=== PATIENT | male | born 1955 | race Caucasian/White ===

== ENCOUNTER 2017-01-13 20:21 | Emergency (ER) | payer OTHER ==
--- NOTE | 2017-01-13 20:42 | EDPHY ---
HPI/HX/ROS/PE/MDM Narrative: CHIEF COMPLAINT: Left thumb laceration. HPI: The patient is a 61-year-old male who presents after lacerating his left thumb on a kitchen knife 5 hours ago. He initially bandaged the thumb but the bleeding would not stop and the pain continued to worsen so he presented to the ED. He denies dizziness, numbness, weakness, injuries to other fingers, or other complaints. He still has full range of motion in his thumb. REVIEW OF SYSTEMS: Gen: No fever, no chills. PMH: Hyperlipidemia. SOCIAL HISTORY: , [facility]. PHYSICAL EXAM: General: Patient is alert, in no acute distress. Left hand: 1.5cm circular laceration to ulnar aspect of thumb. Nail is not involved. Neuro: Oriented x3. Normal motor function. Normal sensory function. ED Course: Procedure: Laceration repair. Verbal consent was obtained from the patient. The 1.5cm circular laceration on the left thumb was anesthetized. The wound was cleaned with standard ED protocol , draped and explored to its base with a gloved finger. There were no deep structures involved. No tendon injury was identified. The wound was repaired in single layer technique with 6 5-0 Prolene sutures. The wound repair was simple. The procedure was performed by myself. MDM: Uncomplicated distal finger laceration. No evidence of neurovascular injury. General Time Seen by Provider: 01/13/17 20:41 Initial Vital Signs: Initial Vital Signs Temperature (C) 37 C 01/13/17 20:24 Heart Rate 94 01/13/17 20:24 Respiratory Rate 16 01/13/17 20:24 Blood Pressure 130/87 H 01/13/17 20:24 O2 Sat (%) 93 01/13/17 20:24 O2 Delivery Mode Room Air Allergies/Adverse Reactions: No Known Allergies Allergy (Unverified 01/13/17 20:29) Home Medications: Medication Instructions Recorded Lipitor 01/13/17 Viagra 01/13/17 Departure - Departure Disposition: Home, Routine, Self-Care Clinical Impression: Finger laceration Qualifiers: Encounter type: initial encounter Qualified Code(s): S61.219A - Laceration without foreign body of unspecified finger without damage to nail, initial encounter Condition: Good Instructions: Care For Your Stitches (ED), Laceration (ED) Additional Instructions: Keep wound clean. OK to shower and wash hands. Return in 7-10 days for suture removal. Return to the emergency department for any serious worsening of condition. If you have any concerns, feel free to email your doctor at [email or web address] Referrals: Wilbert Lacy MD [Primary Care Provider] - As per Instructions Report Scribed for: Oren Nassar Report Scribed by: Ayden Bains Date of Report: 01/13/17 Time of Report: 20:43
[2017-01-13] MEDS ORDERED: OXYCODONE/APAP 5/325MG PREPACK#4 BTL TAKEHOME ONE (21:17)
[2017-01-13 22:16] VITALS: BP 118/78; PULSE 80; RESP 14; TEMP 98.4; O2SAT 94
--- NOTE | 2017-01-20 14:07 | EDPHY ---
ED Progress Note Narrative: 61-year-old male presents to the emergency department for suture removal in his left thumb. Sutures were placed 1 week ago. He presents with concerns about possible infection. Yesterday he noted some redness and some purulent drainage from the wound. On examination the patient has simple interrupted Prolene sutures in place in the left distal thumb on the palmar aspect. There is some redness and some warmth noted to the most medial aspect of the incision. There is no lymphangitis. No signs of septic joint. Full range of motion of his left thumb. No palpable bony tenderness. No involvement of the nail. The patient will be started on Keflex for wound infection. I doubt septic joint. There is no signs of lymphangitis. I do not think IV antibiotics are necessary. I encouraged the patient to avoid any kind of open water until the wound has completely healed. I did warn him regarding risks of possible worsening infection and if he notices any lymphangitis, fever, worsening pain, or any other concerns, he should follow up with primary care provider or return to the emergency department.
== END 2017-01-20 14:39 | disposition home or self-care (01) ==
PROC: 0HQGXZZ Repair Left Hand Skin, External Approach (ICD-10-PCS; principal; 2017-01-13)
DX: S61.012A Laceration without foreign body of left thumb without damage to nail, initial encounter (principal); W26.0XXA Contact with knife, initial encounter